=== PATIENT | female | born 1975 | race Hispanic/Latino ===

== ENCOUNTER 2018-12-28 10:27 | Emergency (ER) | payer OTHER ==
[2018-12-28 11:11] LABS: Absolute Lymphocytes (CBC) 2.1 K/uL (0.7-4.9); Basophils % 0.6 % (0-1.3); Hematocrit 43.5 % (36.0-45.0); Lymphocytes % 31.4 % (15.3-44.8); MPV 8.7 fL (7.6-11.3); RBC Red Blood Cell Count 4.68 M/uL (3.86-4.86)
[2018-12-28 11:16] LABS: Protime INR 0.98
[2018-12-28] MEDS ORDERED: ADENOSINE 6 MG/ 2ML VIAL IV ONE (11:22)
[2018-12-28] MEDS ORDERED: METOPROLOL TARTRATE 5 MG/5 ML INJ IV ONE (11:24)
[2018-12-28 11:30] LABS: ALT/SGPT 23 U/L (12-78); AST/SGOT 14 U/L (15-37); Albumin 4.2 g/dL (3.4-5.0); Alkaline Phosphatase 45 U/L (45-117); BUN Blood Urea Nitrogen 9 mg/dL (7-18); Bicarbonate 22 mmol/L (21-32); Bilirubin Direct 0.1 mg/dL (0-0.2); Bilirubin Total 0.4 mg/dL (0.2-1.0); Glucose Level 166 mg/dL (74-106); Magnesium 2.1 mg/dL (1.8-2.4); NT PRO-BNP 14 pg/mL (<125); Potassium 3.5 mmol/L (3.5-5.1); Protein, Total 7.6 g/dL (6.4-8.2); Sodium Level 138 mmol/L (136-145); Troponin (Emerg Dept Use Only) < 0.02 ng/mL (0.0-0.045)
--- NOTE | 2018-12-28 11:33 | RAD REPORT ---
EXAM DESCRIPTION: Clemente Single View12/28/2018 11:16 am CLINICAL HISTORY: Shortness of breath COMPARISON: none FINDINGS: The lungs appear clear of acute infiltrate. The heart is normal size IMPRESSION: No acute abnormalities displayed
[2018-12-28] MEDS ORDERED: METOPROLOL TAR 25 MG TAB ONE (11:44)
--- NOTE | 2018-12-28 12:33 | EKG ---
Test Date: 2018-12-28 Test Time: 10:40:35 Construction Secretary: MG MEASUREMENT RESULTS: Intervals: Rate: 97 TX: 120 QRSD: 76 QT: 368 QTc: 467 [place]: P: 59 TX: 120 QRS: -15 T: 70 INTERPRETIVE STATEMENTS: Normal sinus rhythm with sinus arrhythmia Nonspecific ST abnormality Abnormal ECG No previous ECG available for comparison Electronically Signed On 12-28-18 12:32:36 CDT by Ventura Moon
--- NOTE | 2018-12-28 15:00 | ER ---
Nurse's Notes [facility] Name: Aminah Arreaga Age: 43 yrs Sex: Female : 1975 Arrival Date: 12/28/2018 Time: 10:27 Bed 8 Private MD: Diagnosis: Supraventricular tachycardia Presentation: 12/28 10:31 Presenting complaint: Sudden SOB, malaise, and generalized weakness while standing at work. BP 128/70, HR 166 at clinic. Transition of care: patient was not received from another setting of care. Onset of symptoms was December 28, 2018. Risk Assessment: Do you want to hurt yourself or someone else? Patient reports no desire to harm self or others. Care prior to arrival: None. 10:31 Method Of Arrival: Ambulatory 10:31 Acuity: NAVID 2 QUALITY CONTROL COORDINATOR: 10:32 LMP 12/11/2018 hb Historical: - Allergies: 10:33 No Known Allergies; hb - Home Meds: 10:33 None [Active]; hb - PMHx: 10:33 None; hb - PSHx: 10:33 None; hb - Immunization history:: Adult Immunizations up to date. - Social history:: Smoking status: Patient/guardian denies using tobacco, Patient/guardian denies using. Screenin:06 Abuse screen: Denies threats or abuse. Denies injuries from another. Nutritional aj screening: No deficits noted. Tuberculosis screening: No symptoms or risk factors identified. Fall Risk None identified. Assessment: 11:06 General: Appears in no apparent distress. comfortable, Behavior is calm, cooperative, aj appropriate for age. Pain: Denies pain. Neuro: Level of Consciousness is awake, alert, obeys commands, Oriented to person, place, time, situation, Appropriate for age. Cardiovascular: Denies chest pain, Rhythm is sinus tachycardia. Respiratory: Reports shortness of breath Airway is patent Respiratory effort is even, unlabored, Respiratory pattern is regular, symmetrical, Breath sounds are clear. Derm: Skin is intact, is healthy with good turgor, Skin is pink, warm \T\ dry. normal. 11:33 Reassessment: Patient became tachycardic and diaphoretic with rate of 170 while aj physician was in room. Physician ordered Adenosine 12mg IVP. When nurse returned with medication HR was 130, provider ordered Metoprolol 5 MG to be repeated x 3 to control HR. Metoprolol administered at 1128, IV slow push, rate changed to Normal Sinus with a rate of 83. 12:28 Reassessment: Patient's monitor alerted that patient's HR was 158, provider called to room. Order for Metoprolol 5mg IVP x 1. Patient's rate changed during IVP medication to NS. 15:33 Reassessment: Patient appears in no apparent distress at this time. No changes from previously documented assessment. Patient and/or family updated on plan of care and expected duration. Pain level reassessed. Patient is alert, oriented x 3, equal unlabored respirations, skin warm/dry/pink. Patient denies pain at this time. Patient states feeling better. Patient states symptoms have improved. Vital Signs: 10:32 BP 149 / 76; Pulse 137; Resp 16; Temp 97.9; Pulse Ox 100% on R/A; Weight 58.97 kg; hb Height 5 ft. (152.40 cm); Pain 0/10; 11:08 BP 112 / 72; Pulse 128; Resp 16; Pulse Ox 100% on R/A; aj 11:22 BP 128 / 82; Pulse 159; Resp 22; Pulse Ox 100% on R/A; aj 11:30 BP 115 / 74; Pulse 85; Resp 16; Pulse Ox 100% on R/A; aj 12:18 BP 108 / 65; Pulse 71; Resp 16; Pulse Ox 100% on R/A; aj 12:28 BP 134 / 66; Pulse 158; Resp 16; Pulse Ox 100% on R/A; aj 12:43 BP 133 / 75; Pulse 88; Resp 16; Pulse Ox 100% on R/A; aj 13:41 BP 103 / 69; Pulse 64; Resp 14; Pulse Ox 100% on R/A; aj 14:48 BP 99 / 64; Pulse 63; Resp 19; Pulse Ox 99% on R/A; aj 10:32 Body Mass Index 25.39 (58.97 kg, 152.40 cm) hb ED Course: 10:27 Patient arrived in ED. as 10:32 Triage completed. hb 10:33 Arm band placed on right wrist. hb 10:39 Marcelo Bishop MD is Attending Physician. kdr 10:47 Susie Doshi, JOSE is Primary Nurse. aj 11:06 Patient has correct armband on for positive identification. Placed in gown. Bed in low aj position. Call light in reach. Side rails up X 1. Adult w/ patient. teletypesetter monitor on. Pulse ox on. NIBP on. 11:06 Inserted saline lock: 22 gauge in right antecubital area, using aseptic technique. aj Blood collected. 11:15 X-ray completed. Portable x-ray completed in exam room. Patient tolerated procedure ml well. 11:17 XRAY Chest (1 view) In Process Unspecified. EDMS 12:57 Troponin (emerg Dept Use Only) Sent. aj 13:58 Holter monitor was applied and instructions were given. at1 15:33 No provider procedures requiring assistance completed. IV discontinued, intact, aj bleeding controlled, No redness/swelling at site. Pressure dressing applied. Administered Medications: 11:28 Drug: Lopressor 5 mg Route: IVP; Site: right antecubital; aj 12:18 Follow up: Response: Cardiac rhythm changed aj 11:46 Drug: Lopressor 25 mg Route: PO; aj 12:19 Follow up: Response: Cardiac rhythm changed aj 12:28 Drug: Lopressor 5 mg Route: IVP; Site: right antecubital; aj 12:42 Follow up: Response: Cardiac rhythm changed aj Outcome: 14:59 Discharge ordered by . kdr 15:33 Discharged to home ambulatory. aj 15:33 Condition: good 15:33 Discharge instructions given to patient, Instructed on discharge instructions, follow up and referral plans. medication usage, Demonstrated understanding of instructions, follow-up care, medications, Prescriptions given X 1. 15:34 Patient left the ED. aj Signatures: Dispatcher [employer] Susie Obrien, RN RN Marcelo Squires MD MD kdr Martinez, Amelia as Lopez, Melissa ml Gonzales, Amanda, obstetrics and gynecology professor EKG Tat1 Dotty Torres, JOSE RN hb Corrections: (The following items were deleted from the chart) 10:38 10:31 Presenting complaint: Sudden SOB, malaise, SOB, and generalized weakness while hb standing at work. BP 128/70, HR 166 at clinic. hb
--- NOTE | 2018-12-28 15:01 | EDPHYS ---
Physician Documentation [facility] Name: Aminah Arreaga Age: 43 yrs Sex: Female : 1975 Arrival Date: 12/28/2018 Time: 10:27 Bed 8 Private MD: ED Physician Marcelo Bishop HPI: 12/28 11:31 This 43 yrs old Female presents to ER via Ambulatory with complaints of kdr Shortness Of Breath, Dizziness, Weakness. 11:31 The patient has shortness of breath at rest, with light activity. Onset: The kdr symptoms/episode began/occurred suddenly, just prior to arrival, this morning. Duration: The symptoms are intermittent, with no pattern. The patient's shortness of breath is aggravated by nothing, is alleviated by nothing. Associated signs and symptoms: Pertinent positives: chest pain, SOB. Severity of symptoms: At their worst the symptoms were severe incapacitating in the emergency department the symptoms have improved markedly. The patient has not experienced similar symptoms in the past. The patient has not recently seen a physician. 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 - Social history:: Smoking status: Patient/guardian denies using tobacco, Patient/guardian denies using. ROS: 11:31 Constitutional: Negative for fever, chills, and weight loss, Eyes: Negative for injury, kdr pain, redness, and discharge, ENT: Negative for injury, pain, and discharge, Neck: Negative for injury, pain, and swelling, Abdomen/GI: Negative for abdominal pain, nausea, vomiting, diarrhea, and constipation, Back: Negative for injury and pain, : Negative for injury, bleeding, discharge, and swelling, MS/Extremity: Negative for injury and deformity, Skin: Negative for injury, rash, and discoloration, Neuro: Negative for headache, weakness, numbness, tingling, and seizure activity. Psych: Negative for depression, anxiety, suicide ideation, homicidal ideation, and hallucinations, Allergy/Immunology: Negative for hives, rash, and allergies, Endocrine: Negative for neck swelling, polydipsia, polyuria, polyphagia, and marked weight changes, Hematologic/Lymphatic: Negative for swollen nodes, abnormal bleeding, and unusual bruising. 11:31 Cardiovascular: Positive for chest pain, palpitations, Negative for edema, orthopnea, paroxysmal nocturnal dyspnea. 11:31 Respiratory: Positive for dyspnea on exertion, shortness of breath, Negative for hemoptysis, orthopnea, pleurisy. Exam: 11:31 Constitutional: This is a well developed, well nourished patient who is awake, alert, kdr and in moderate distress. Head/Face: Normocephalic, atraumatic. Eyes: Pupils equal round and reactive to light, extra-ocular motions intact. Lids and lashes normal. Conjunctiva and sclera are non-icteric and not injected. Cornea within normal limits. Periorbital areas with no swelling, redness, or edema. Neck: Trachea midline, no thyromegaly or masses palpated, and no cervical lymphadenopathy. Supple, full range of motion without nuchal rigidity, or vertebral point tenderness. No Meningismus. Chest/axilla: Normal chest wall appearance and motion. Nontender with no deformity. No lesions are appreciated. Respiratory: Lungs have equal breath sounds bilaterally, clear to auscultation and percussion. No rales, rhonchi or wheezes noted. No increased work of breathing, no retractions or nasal flaring. Abdomen/GI: Soft, non-tender, with normal bowel sounds. No distension or tympany. No guarding or rebound. No evidence of tenderness throughout. Back: No spinal tenderness. No costovertebral tenderness. Full range of motion. Skin: Warm, dry with normal turgor. Normal color with no rashes, no lesions, and no evidence of cellulitis. MS/ Extremity: Pulses equal, no cyanosis. Neurovascular intact. Full, normal range of motion. Neuro: Awake and alert, GCS 15, oriented to person, place, time, and situation. Cranial nerves II-XII grossly intact. Motor strength 5/5 in all extremities. Sensory grossly intact. Cerebellar exam normal. Normal gait. Psych: Awake, alert, with orientation to person, place and time. Behavior, mood, and affect are within normal limits. 11:31 Cardiovascular: Rate: tachycardic, actual rate is 174 bpm, Rhythm: regular, Pulses: no pulse deficits are appreciated, Heart sounds: normal, Edema: is not appreciated. Vital Signs: 10:32 BP 149 / 76; Pulse 137; Resp 16; Temp 97.9; Pulse Ox 100% on R/A; Weight 58.97 kg; hb Height 5 ft. (152.40 cm); Pain 0/10; 11:08 BP 112 / 72; Pulse 128; Resp 16; Pulse Ox 100% on R/A; aj 11:22 BP 128 / 82; Pulse 159; Resp 22; Pulse Ox 100% on R/A; aj 11:30 BP 115 / 74; Pulse 85; Resp 16; Pulse Ox 100% on R/A; aj 12:18 BP 108 / 65; Pulse 71; Resp 16; Pulse Ox 100% on R/A; aj 12:28 BP 134 / 66; Pulse 158; Resp 16; Pulse Ox 100% on R/A; aj 12:43 BP 133 / 75; Pulse 88; Resp 16; Pulse Ox 100% on R/A; aj 13:41 BP 103 / 69; Pulse 64; Resp 14; Pulse Ox 100% on R/A; aj 14:48 BP 99 / 64; Pulse 63; Resp 19; Pulse Ox 99% on R/A; aj 10:32 Body Mass Index 25.39 (58.97 kg, 152.40 cm) hb MDM: 11:31 Data reviewed: vital signs, nurses notes, lab test result(s), radiologic studies. kdr 14:59 Patient medically screened. kdr 15:03 The patient's pulmonary embolism risk score was calculated as follows: No Risks (0 Pts) kdr the patients heart rate is greater than 100 beats per minute (1.5 Pts) Total Score: 0-2 points. This patient was found to be at low risk for a pulmonary embolism by using the Well's assessment criteria. ED course: After the second dose of Lopressor IV, the patient continued to be stable in the ED. She will follow-up soon with cardiology. 12/28 10:45 Order name: Basic Metabolic Panel; Complete Time: 11:51 kdr 12/28 10:45 Order name: CBC with Diff; Complete Time: 11:31 kdr 12/28 10:45 Order name: LFT's; Complete Time: 11:51 kdr 12/28 10:45 Order name: Magnesium; Complete Time: 11:51 kdr 12/28 10:45 Order name: NT PRO-BNP; Complete Time: 11:51 kdr 12/28 10:45 Order name: PT-INR; Complete Time: 11:31 kdr 12/28 10:45 Order name: Troponin (emerg Dept Use Only); Complete Time: 11:51 kdr 12/28 10:45 Order name: XRAY Chest (1 view); Complete Time: 11:51 kdr 12/28 10:45 Order name: EKG; Complete Time: 10:46 kdr 12/28 10:45 Order name: Cardiac monitoring; Complete Time: 11:08 kdr 12/28 12:19 Order name: Troponin (emerg Dept Use Only); Complete Time: 13:52 aj 12/28 13:33 Order name: Holter Monitor (ORDER); Complete Time: 13:35 aj 12/28 10:45 Order name: EKG - Nurse/Tech; Complete Time: 11:08 kdr 12/28 10:45 Order name: IV Saline Lock; Complete Time: 11:08 kdr 12/28 10:45 Order name: Labs collected and sent; Complete Time: 11:08 kdr 12/28 10:45 Order name: O2 Per Protocol; Complete Time: 11:08 kdr 12/28 10:45 Order name: O2 Sat Monitoring; Complete Time: 11:08 kdr 12/28 12:42 Order name: EKG - Nurse/Tech; Complete Time: 12:57 kdr Administered Medications: 11:28 Drug: Lopressor 5 mg Route: IVP; Site: right antecubital; aj 12:18 Follow up: Response: Cardiac rhythm changed aj 11:46 Drug: Lopressor 25 mg Route: PO; aj 12:19 Follow up: Response: Cardiac rhythm changed aj 12:28 Drug: Lopressor 5 mg Route: IVP; Site: right antecubital; aj 12:42 Follow up: Response: Cardiac rhythm changed aj Disposition: 12/28/18 14:59 Discharged to Home. Impression: Supraventricular tachycardia. - Condition is Stable. - Discharge Instructions: Paroxysmal Supraventricular Tachycardia, [id number]. - Prescriptions for Lopressor 50 mg Oral tablet - take 1 tablet by ORAL route every 24 hours with meals; 15 tablet. - Medication Reconciliation Form, Thank You Letter form. - Follow up: Private Physician; When: 2 - 3 days; Reason: If symptoms return, Further diagnostic work-up, Recheck today's complaints, Continuance of care, Re-evaluation by your physician. - Problem is new. - Symptoms are resolved. Signatures: Dispatcher [employer] Susie Obrien, RN RN Marcelo Squires MD MD [facility] Dotty Torres RN RN Corrections: (The following items were deleted from the chart) 15:34 14:59 12/28/2018 14:59 Discharged to Home. Impression: Supraventricular tachycardia. aj Condition is Stable. Forms are Medication Reconciliation Form, Thank You Letter, Antibiotic Education, Prescription Opioid Use. Follow up: Private Physician; When: 2 - 3 days; Reason: If symptoms return, Further diagnostic work-up, Recheck today's complaints, Continuance of care, Re-evaluation by your physician. Problem is new. Symptoms are resolved. kdr
--- NOTE | 2018-12-29 06:49 | EKG ---
Test Date: 2018-12-28 Test Time: 12:59:55 Medical Physics Teacher: LISSETH MEASUREMENT RESULTS: Intervals: Rate: 67 UT: 138 QRSD: 78 QT: 378 QTc: 399 [place]: P: 58 UT: 138 QRS: 33 T: 64 INTERPRETIVE STATEMENTS: Normal sinus rhythm Normal ECG Compared to ECG 12/28/2018 10:40:35 Sinus arrhythmia no longer present ST (T wave) deviation no longer present Electronically Signed On 12-29-18 06:46:18 CDT by Ventura Moon
--- NOTE | 2018-12-31 16:35 | HM ---
Indications : Intermittent tachycardia Diary Notations : Referring MD : Marcelo Bishop Medications: Reading MD : Raúl Tucker : Summary Report Test Date : 12/28/18 1:30:10 PM Start Time : 1:30:10 PM Total Beats : 14882 Hours Analyzed : 24:33:50 Unknown Beats : 0 Scan Date : 12/31/18 9:58:45 AM Artifact : 1:17:05 Other Beats : 0 Percent AFIB : 0.00% Rate Dependent Events Heart Rates Min : 53 BPM at 6:10:00 PM Bradycardia Runs: 0 Pauses : 0 Max : 123 BPM at 11:02:00 AM Longest : 0 beats at 0 Longest : 0.0 secs Avg : 69 BPM Min rate : 0 BPM at at Ventricular Events Supraventricular Events Total Beats : 0 Couplets : 0 Total Beats : 3 Couplets : 0 Triplets : 0 Bigeminy Runs : 0 VTach Runs : 0 SVTach Runs : 0 Longest : 0 beats at Longest : 0 beats at Max Rate ; 0 BPM Max Rate : 0 BPM at Impressions and Findings EKG: Sinus with non specific ST abnormality. Holter: Sinus 53-123 beats per minute with no pauses. No ventricular ectopy Three premature atrial complexs were seen in 24 hours with no supraventricular tachycardia, no atrial fibrillation.
== END 2018-12-28 15:34 | disposition home or self-care (01) ==
LOC: ER 10:27
DX: I47.1 Supraventricular tachycardia (principal)
CPT/HCPCS: 93225; 93226; 93005; 85025; 80048; 36415; 83735; 85610; 80076; 84484 ×2; 83880; 71045; J0153; 96374; 99284

== ENCOUNTER 2022-10-25 15:36 | Emergency (ER) | payer OTHER ==
--- OUTSIDE RECORDS SUMMARY | 2022-10-25 15:40 | XMS REPORT | Continuity of Care Document ---
:1975 Author Organization [facility] t Address [address] [facility] [address] [place] [address] Care Team Providers Name Role Phone Karma Roberson Primary Care Physician Audrey Arroyo MA Attending Clinician Unavailable Doctor Unassigned, [place] Attending Clinician Unavailable Arianna Louis RN Attending Clinician Unavailable Only, Ang Db Test Attending Clinician Unavailable Jordan BLACKMON, Sindy Attending Clinician SINDY ORTEGA Attending Clinician Unavailable Payers Payer Name Policy Type Policy Number Effective Date Expiration Date S ource Problems This patient has no known problems. Allergies, Adverse Reactions, Alerts Allergy Allergy Status Severity Reaction(s) Onset Inactive Treating Comm ents Source Name Type Date Date Clinician NO KNOWN Drug Active Univers [facility]ERGIE Class ity of [facility] Social History Social Habit Start Date Stop Date Quantity Comments Source Exposure to Not sure [facility] SARS-CoV-2 (event) Medica l Branch Sex Assigned At [birth year] [facility] 00:00:00 00:00:00 [facility] Smoking Status Start Date Stop Date Source Unknown if ever smoked [facility] Medications This patient has no known medications. Procedures Procedure Date / Time Performed Performing Clinician Sourc e EXTERNAL PROVIDER 2021-06-01 06:01:00 Doctor Unassigned, No Univ [facility] RECORDS Name Medical Branch Encounters Start End Encounter Admission Attending Care Care Encounter Source Date/Time Date/Time Type Type Clinicians Facility Department ID 2021-06-09 2021-06-09 SHELLEY Friedman [id number] Univers 00:00:00 00:00:00 Management Audrey WISDOM [id number] [id number] [id number] [facility] [address] Branch 2021-06-01 2021-06-01 Orders Doctor KALYAN [id number] Univers 00:00:00 00:00:00 Only Unasspedro, ANNAMARIE [id number] ity of [place] [facility] [id number] [place] [id number] [facility] [address] [place] 2021-04-20 2021-04-20 Letter KALYAN Louis [id number] Univers 00:00:00 00:00:00 (Out) Arianna DE LUNA [id number] it y of HOSPITAL [id number] [place] [id number] [facility] [address] [place] 2021-04-19 2021-04-19 Laboratory Only, Ang Db Test [facility] [id number] Univers 12:01:14 12:16:14 Only Sindy Ortega [facility] [id number] ity of [place] [id number] [place] as VINICIUS?BLEA [id number] Al jorge [address] MEDICAL OFFICE BUILDING 2021-04-19 2021-04-19 Outpatient R JORDAN [facility] [id number] Univers 12:00:00 12:00:00 SINDY yates [facility] Results This patient has no known results.
[2022-10-25 16:42] LABS: Absolute Lymphocytes (CBC) 1.8 K/uL (0.7-4.9); Hematocrit 40.7 % (36.0-45.0); Lymphocytes % 27.2 % (15.3-44.8); MCV 90.2 fL (80-100); MPV 7.7 fL (7.6-11.3); RBC Red Blood Cell Count 4.51 M/uL (3.86-4.86)
--- NOTE | 2022-10-25 17:01 | RAD REPORT ---
EXAM DESCRIPTION: Clemente Single View10/25/2022 4:39 pm CLINICAL HISTORY: Chest pain COMPARISON: 2018 FINDINGS: The lungs appear clear of acute infiltrate. The heart is normal size IMPRESSION: No acute abnormalities displayed
[2022-10-25 17:03] LABS: BUN Blood Urea Nitrogen 9 mg/dL (7-18); Bicarbonate 27 mEq/L (21-32); Glomerular Filtration Rate 102 ml/min (=/>90); Glucose Level 120 mg/dL (74-106); Potassium 3.4 mEq/L (3.5-5.1); Sodium Level 140 mEq/L (136-145)
[2022-10-25 17:07] LABS: Troponin High Sensitivity < 3.0 pg/mL (<58.9)
[2022-10-25 18:51] LABS: Specific Gravity 1.007 (1.005-1.030)
--- NOTE | 2022-10-25 20:17 | EDPHYS ---
Physician Documentation [facility] Name: Aminah Arreaga Age: 47 yrs Sex: Female : 1975 Arrival Date: 10/25/2022 Time: 15:36 Bed 16 Private MD: Davis Moreno ED Physician Laron Ramírez HPI: 10/25 15:58 This 47 yrs old Female presents to ER via Unassigned with complaints of bs3 Palpitations. 15:58 47-year-old female no significant past medical history presents with palpitations today bs3 she has associated generalized heaviness as well no fevers or chills no chest pain shortness of breath she works with her primary care physician who advised her to come in he did do an EKG which I reviewed and is normal she notes currently that the palpitations are improved but she just feels like her head is heavy and she feels generalized weakness. 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 - Social history:: Smoking status: Patient denies any tobacco usage or history of. ROS: 15:58 Constitutional: Negative for fever, chills bs3 15:58 All other systems are negative. Exam: 15:58 Constitutional: This is a well developed, well nourished patient who is awake, alert, bs3 and in no acute distress. Head/Face: Normocephalic, atraumatic. Eyes: Pupils equal round and reactive to light, extra-ocular motions intact. Lids and lashes normal. ENT: mmm, no posterior phyarngeal erythema Neck: Trachea midline, no thyromegaly, no neck stiffness Chest/axilla: Normal chest wall appearance and motion. Nontender with no deformity. No lesions are appreciated. Cardiovascular: Regular rate and rhythm with a normal S1 and S2. symmetric pulses in upper extremities Respiratory: Lungs have equal breath sounds bilaterally, clear to auscultation, no respiratory distress Abdomen/GI: Soft, non-tender, no rebound or guarding MS/ Extremity: Pulses equal, no cyanosis. Neurovascular intact. Full, normal range of motion. Neuro: Awake and alert, GCS 15, oriented to person, place, time, and situation. Cranial nerves II-XII grossly intact. Motor strength 5/5 in all extremities. Sensory grossly intact. Normal gait Psych: Awake, alert, with orientation to person, place and time. Behavior, mood, and affect are within normal limits. 15:58 EKG performed in her physician's office today at 2:55 PM is normal sinus rhythm at [address] elevations or depressions. QTc is normal Vital Signs: 16:15 BP 130 / 76; Pulse 98; Resp 16; Temp 97.7; Pulse Ox 100% on R/A; Weight 63.05 kg; iw Height 5 ft. 1 in. ; 18:32 BP 119 / 80; Pulse 82; Resp 18; Pulse Ox 100% on R/A; ld1 19:00 BP 119 / 74; Pulse 60; Resp 17; Pulse Ox 100% on R/A; aa9 16:15 Body Mass Index 26.26 (63.05 kg, 154.94 cm) iw MDM: 15:47 Patient medically screened. bs3 15:58 Data reviewed: vital signs, nurses notes. bs3 15:58 ED course: Patient with palpitations and vague heaviness in her body she is very bs3 well-appearing here her vital signs are normal here initial EKG at the office was normal will rule out acute coronary syndrome and do serial exams I considered aortic dissection and pulmonary embolism but she does not have a ripping or tearing pain she has no weakness she has good blood pressures in both arms she is not hypoxic or tachypneic or tachycardic and has no risk factors for pulmonary embolism or dissection. 16:55 ED course: ekg here nsr no st elevation ro depression qtc normal, ecg reviewed from bs3 2019 unchanged from today, she reports an echo and holter with Dr. Moon will attempt to d/w Dr. Santa. 17:18 ED course: Discussed with Dr. Moon who recommends follow-up on afternoon bs3 for further work-up. 20:14 ED course: repeat troponin neg, pt feeling well here, advised f/u on with bs3 cardiology, return prec given. . 10/25 15:48 Order name: Basic Metabolic Panel; Complete Time: 17:15 bs3 10/25 15:48 Order name: CBC with Diff; Complete Time: 16:52 bs3 10/25 15:48 Order name: Troponin HS; Complete Time: 17:15 bs3 10/25 15:48 Order name: TSH; Complete Time: 17:15 bs3 10/25 15:48 Order name: Test, Urine; Complete Time: 19:48 3 10/25 17:48 Order name: Troponin High Sensitivity; Complete Time: 20:13 bs3 10/25 15:48 Order name: XRAY Chest (1 view); Complete Time: 17:15 bs3 10/25 15:48 Order name: EKG; Complete Time: 15:49 bs3 10/25 15:48 Order name: Cardiac monitoring; Complete Time: 16:35 bs3 10/25 15:48 Order name: EKG - Nurse/Tech; Complete Time: 18:10 3 10/25 15:48 Order name: IV Saline Lock; Complete Time: 16:35 3 10/25 15:48 Order name: Labs collected and sent; Complete Time: 16:35 bs3 10/25 15:48 Order name: O2 Per Protocol; Complete Time: 16:35 bs3 10/25 15:48 Order name: O2 Sat Monitoring; Complete Time: 16:35 bs3 Administered Medications: No medications were administered Disposition Summary: 10/25/22 20:16 Discharge Ordered Location: Home bs3 Problem: new bs3 Symptoms: have improved bs3 Condition: Stable bs3 Diagnosis - Palpitations bs3 Followup: bs3 - With: Ventura Moon MD - When: 48 Hours - Reason: Re-evaluation by your physician Discharge Instructions: - Discharge Summary Sheet bs3 - Palpitations bs3 Forms: - Medication Reconciliation Form bs3 - Thank You Letter bs3 - Antibiotic Education bs3 - Prescription Opioid Use bs3 Signatures: Dispatcher [employer] Bri Cazares, Laron Lo RN, MD MD bs3
--- NOTE | 2022-10-25 20:17 | ER ---
Nurse's Notes [facility] Name: Aminah Arreaga Age: 47 yrs Sex: Female : 1975 Arrival Date: 10/25/2022 Time: 15:36 Bed 16 Private MD: Davis Moreno Diagnosis: Palpitations Presentation: 10/25 16:15 Chief complaint: Patient states: she felt like she had a fast heart beat at the office, iw and now she feels heavy all over. Coronavirus screen: At this time, the client does not indicate any symptoms associated with coronavirus-19. Ebola Screen: Patient negative for fever greater than or equal to 101.5 degrees Fahrenheit, and additional compatible Ebola Virus Disease symptoms Patient denies exposure to infectious person. Patient denies travel to an Ebola-affected area in the 21 days before illness onset. No symptoms or risks identified at this time. Initial Sepsis Screen: Does the patient meet any 2 criteria? No. Patient's initial sepsis screen is negative. Does the patient have a suspected source of infection? No. Patient's initial sepsis screen is negative. Risk Assessment: Do you want to hurt yourself or someone else? Patient reports no desire to harm self or others. Onset of symptoms was October 25, 2022. 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 - Social history:: Smoking status: Patient denies any tobacco usage or history of. Screenin:34 [facility] ED Fall Risk Assessment (Adult) History of falling in the last 3 months, ld1 including since admission No falls in past 3 months (0 pts). Abuse screen: Denies threats or abuse. Denies injuries from another. Nutritional screening: No deficits noted. Tuberculosis screening: No symptoms or risk factors identified. Assessment: 18:32 General: Appears in no apparent distress. comfortable, Behavior is calm, cooperative, ld1 appropriate for age. Pain: Denies pain. Neuro: Level of Consciousness is awake, alert, obeys commands, Oriented to person, place, time, situation. Cardiovascular: Capillary refill < 3 seconds Patient's skin is warm and dry. Rhythm is sinus rhythm. Respiratory: Airway is patent Respiratory effort is even, unlabored. GI: Abdomen is flat, non-distended. : No signs and/or symptoms were reported regarding the genitourinary system. EENT: No signs and/or symptoms were reported regarding the EENT system. Derm: No signs and/or symptoms reported regarding the dermatologic system. Musculoskeletal: No signs and/or symptoms reported regarding the musculoskeletal system. 19:41 General: Appears in no apparent distress. comfortable, Behavior is calm, cooperative. aa9 Pain: Denies pain. Neuro: Level of Consciousness is awake, alert, obeys commands, Oriented to person, place, time, situation. Cardiovascular: Patient's skin is warm and dry. Respiratory: Airway is patent Respiratory effort is even, unlabored. 20:29 Reassessment: Patient appears in no apparent distress at this time. Dr Ramírez at bedside.aa9 20:34 Reassessment: Patient appears in no apparent distress at this time. Patient and/or aa9 family updated on plan of care and expected duration. Pain level reassessed. Patient is alert, oriented x 3, equal unlabored respirations, skin warm/dry/pink. Patient states symptoms have improved. Vital Signs: 16:15 BP 130 / 76; Pulse 98; Resp 16; Temp 97.7; Pulse Ox 100% on R/A; Weight 63.05 kg; iw Height 5 ft. 1 in. ; 18:32 BP 119 / 80; Pulse 82; Resp 18; Pulse Ox 100% on R/A; ld1 19:00 BP 119 / 74; Pulse 60; Resp 17; Pulse Ox 100% on R/A; aa9 16:15 Body Mass Index 26.26 (63.05 kg, 154.94 cm) iw ED Course: 15:41 Patient arrived in ED. im 15:42 Davis Moreno MD is Private Physician. im 15:47 Laron Ramírez MD is Attending Physician. bs3 16:16 Triage completed. iw 16:17 Arm band placed on. iw 16:40 XRAY Chest (1 view) In Process Unspecified. EDMS 17:51 Brandi Ortega, RN is Primary Nurse. ld1 18:12 Placed in gown. Bed in low position. Call light in reach. Side rails up X 1. Client mb9 placed on continuous cardiac and pulse oximetry monitoring. NIBP monitoring applied. ekg monitor tech on. 18:12 EKG done, by ED staff, reviewed by Laron Ramírez MD. mb9 18:12 Inserted saline lock: 24 gauge in right antecubital area, using aseptic technique. mb9 18:34 No provider procedures requiring assistance completed. ld1 19:41 Troponin High Sensitivity Sent. aa9 20:15 Ventura Moon MD is Referral Physician. bs3 20:34 IV discontinued, intact, bleeding controlled, No redness/swelling at site. Pressure aa9 dressing applied. Administered Medications: No medications were administered Medication: 18:13 VIS not applicable for this client. mb9 Outcome: 20:16 Discharge ordered by MD. bs3 20:34 Discharged to home via ambulance, with family. aa9 20:34 Condition: stable 20:34 Discharge instructions given to patient, Instructed on discharge instructions, follow up and referral plans. Demonstrated understanding of instructions, follow-up care. 20:35 Patient left the ED. aa9 Signatures: Dispatcher [employer] EDMS Bri Parker RN RN iw Brandi Ortega, RN RN ld1 Herminia Nixon, RN RN aa9 Laron Ramírez MD MD bs3 Katey Gonzáles RN RN mb9 Monse Singleton
[2022-10-25 21:20] VITALS: TEMP 97.7; O2SAT 100
[2022-10-25 21:22] VITALS: BP 119/74
--- NOTE | 2022-10-27 12:11 | EKG ---
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
== END 2022-10-25 20:35 | disposition home or self-care (01) ==
LOC: ER 15:36
DX: R00.2 Palpitations (principal)
CPT/HCPCS: 36415; 71045; 80048; 81025; 84443; 84484; 85025; 93005; 99284